=== PATIENT | male | born 2005 | race Native Hawaiian/Other Pacific Islander ===

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

== ENCOUNTER 2024-06-14 19:00 | Emergency (ER) | payer OTHER, SELFPAY ==
--- NOTE | ~2024-06-14 | XR_ITS ---
EXAM: XR ankle RT min 3V, XR foot RT min 3V DATE: 06/14/2024 19:17 (accession [id number]), 06/14/2024 19:18 (accession [id number]) HISTORY: LATERAL RIGHT ANKLE PAIN AFTER ROLLING ANKLE LAST NIGHT. . COMPARISON: None available. FINDINGS: Normal mineralization. Small ossific fragment at the tip of the medial malleolus. Otherwis e, no fracture or dislocation. No lytic or blastic lesion. Joint spaces are maintained. No erosion or periosteal change. Circumferential ankle swelling, worse laterally. IMPRESSION: Small acute versus chronic avulsion fragment at the tip of the medial malleolus. Reviewed, dictated and finalized at location K. IMPRESSION: Small acute versus chronic avulsion fragment at the tip of the medi al malleolus.
[2024-06-14 19:00] VITALS: BP 152/97; PULSE 94; RESP 18; O2SAT 99
--- NOTE | 2024-06-14 19:04 | ED.LOWEXIN ---
HPI - Extremity Injury (Lower) General Chief Complaint: Extremity Injury, Lower Stated Complaint: right ankle Time Seen by Provider: 06/14/24 19:03 Source: patient Limitations: no limitations History of Present Illness HPI Narrative: this is a 18-year-old male who presents with some injury to his right ankle and foot while at a concert rolled his foot and ankle causing swelling and bruising has been taking [id number] medication which has helped, has good range of motion although limited secondary to swelling and bruising. complaint: ankle injury and foot injury Onset (ago): day(s) Injury: Right: ankle ( swelling with bruising) and foot ( swelling with bruising) Type of Injury: inversion and eversion Place: other Severity: mild Severity scale (1-10): 3 Relieving factors: NSAID Exacerbating factors: movement Related Data Home Medications Medication Instructions Recorded Confirmed No Home Medications 05/01/22 06/14/24 Allergies Allergy/AdvReac Type Severity Reaction Status Date / Time No Known Allergies Allergy Verified 05/01/22 13:31 Review of Systems Review of Systems: All systems reviewed & are unremarkable except as noted in HPI and below PMFSH Past Medical History Medical History Patient denies medical problems Exam Const: General: healthy appearing, no acute distress and alert Nutritional Appearance: well nourished Orientation/consciousness: patient oriented x3 Limitations: no limitations Resp: Effort & Inspection: normal respiratory effort Auscultation: clear to auscultation bilaterally Cardio: Rate: regular rate Rhythm: regular rhythm GI: GI Palp: Yes Soft to palpation Auscultation: normal bowel sounds Urinary Catheter: Urinary Catheter: patent and draining Back/Spine/Pelvis: Back: no CVA tenderness Skin: Wounds: wounds noted Other: bruising right ankle and foot along with swelling Extrem: General: edema Other: swelling and bruising right ankle Course Course Emergency Course: patient took [id number] medication his pain level is minimal at this time but is concerned about swelling and bruising of the right ankle x-rays performed and reviewed. Critical Care Time Critical Care Time Critical Care Time: No Discharge Plan Discharge Clinical Impression: Ankle sprain and strain Patient Disposition: Home, Self-Care Condition: Stable Instructions: Antibiotic Form, Ankle Sprain (ED) Prescriptions: No Action No Home Medications Follow-up/Referrals: UNKNOWN,DOCTOR [Primary Care Provider] -
[2024-06-14 19:08] VITALS: BP 157/96; PULSE 87; RESP 20; TEMP 36.6; O2SAT 98
[2024-06-14 19:51] VITALS: BP 142/87; PULSE 87; RESP 18; TEMP 36.6; O2SAT 99
== END 2024-06-14 19:51 | disposition home or self-care (01) ==
PROVIDERS: Emergency Provider Emergency Medicine
DX: S93.401A Sprain of unspecified ligament of right ankle, initial encounter (principal); S96.911A Strain of unspecified muscle and tendon at ankle and foot level, right foot, initial encounter; X50.0XXA Overexertion from strenuous movement or load, initial encounter
CPT/HCPCS: 73610; 73630; 99283